=== PATIENT | female | born 1990 | race Caucasian/White ===

== ENCOUNTER → 2016-12-07 | Outpatient (CLI) | payer OTHER ==
--- NOTE | 2016-12-07 13:39 | RAD ---
Indication ovarian cyst. Transabdominal scans were obtained. The initial transabdominal scans were supplemented with transvaginal scans. The hCG status is uncertain but for the purposes of this dictation will be assumed to be negative. The uterus measures approximately 7.4 x 5 x 3.3 cm and appears unremarkable. The endometrial thickness appears normal. Both ovaries appear unremarkable. Follicular cysts are noted associated with both. No significant free fluid was seen in the pelvis IMPRESSION: Normal study
== END | disposition home or self-care (01) ==
LOC: US 12:02 → EEVIPCON 13:00
PROVIDERS: ATTEND Nurse Practitioner
DX: N83.209 Unspecified ovarian cyst, unspecified side (principal)
CPT/HCPCS: 76856